=== PATIENT | male | born 1975 | race Caucasian/White ===

== ENCOUNTER 2023-06-29 08:10 | Day surgery (SDC) | payer OTHER, SELFPAY ==
[2023-06-29] VITALS (9 sets, daily range): BP systolic 117–139; BP diastolic 81–97; PULSE 65–99; RESP 12–16; TEMP 36.2–36.4; O2SAT 96–100; BMI 28.0
--- NOTE | 2023-06-29 08:00 | XR_ITS ---
[address] [address] Patient Name: JOAQUINA TOUSSAINT MRN: [id number] date: 1975 Sex: M Assigned Patient Location: [facility] Current Patient Location: [facility] Accession/Order Number: [id number] Exam Date: 06/29/2023 08:30 Report Date: 06/29/2023 09:42 At the request of: RUDY VO Procedure: XR abdomen 1V EXAM: XR abdomen 1V HISTORY: kidney stone COMPARISON: None. TECHNIQUE: AP view of the abdomen. FINDINGS: Nonobstructive bowel gas pattern is noted. There is no suspicious calcification. The osseous structures are intact. XR/XR abdomen 1V IMPRESSION: Unremarkable exam. Electronically authenticated by: JULIO LEMUS Date: 06/29/2023 09:42
--- NOTE | 2023-06-29 08:30 | ECG_ITS ---
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
[2023-06-29 09:01] LABS: Partial Thromboplastin Time 30.3 sec (22.3-36.2); Prothrombin Time 10.6 sec (9.0-11.6)
[2023-06-29] MEDS: LACTATED RINGER'S SOLUTION 1,000 ML 50 ML IV ×2 (09:18→10:47)
[2023-06-29] MEDS: CEFAZOLIN SODIUM/DEXTROSE,ISO 1 GM/50 ML IV.SOLN IV (09:33)
--- NOTE | 2023-06-29 11:22 | P.URON_ITS ---
Urology Surgery Operative Note Operative Note Procedure Date: 06/29/23 Time Out Performed: yes Pre-op Diagnosis: obstructing left ureteral calculus Post-op Diagnosis: same as pre-op Procedures performed: #1. Left ESWL. #2. Cystoscopy. #3. Left rigid ureteral dilation. #4. Left ureteroscopy. #5. Left holmium laser lithotripsy of ureteral calculus. #6. Left ureteral stone basket extraction. #7. Placement of 6 [place] variable length left ureteral stent Anesthesia: General-LMA Primary Surgeon: Deon Matt Complications: non- Estimated blood loss (mL): 10 Findings: large extremely dense left ureteral calculus Specimens: left ureteral calculus fragments Drains: 6 [place] variable length left ureteral stent Indications for Procedures: gentleman has a 6-7 mm left ureteral calculus which has been causing pain and he has been unable to pass the stone. He was desirous for left ESWL and possible definitive ureteroscopic stone manipulation and stent placement. He signed an informed consent after all the risks were explained. Some of these risks include bleeding, perinephric hematoma, infection and anesthesia to name a few. Detailed description of Procedure: The patient was brought to the Operating Room and placed on Siemens electromagnetic lithotripsy treatment table in the supine position. SCDs were placed on their lower extremities and turned on and functioning during the entire case. Timeout was done by all parties in the room. We all agreed upon the patient's identification and the planned procedures for this patient. General Anesthesia was then administered via LMA. Treatment head was then brought to the patient's left side. While using flourscopy the stone was identified now in the distal 3rd of the ureter and lined up into the crosshairs. We then began applying shocks at power level II.0 and increased to maximum of power level III.7. Intermittent fluoroscopy showed that the stone failed to fragment. After 2000 shocks were applied we terminated this portion of the procedure. He was then repositioned into the modified dorsal lithotomy position. All pressure points were satisfactorily padded. Genitalia were sterilely prepped and draped in the usual fashion. I started by passing a 22 [place] Olympus cystoscope per urethra and into the bladder. Anterior urethra was normal. Prostatic urethra had a high median bar but the lateral lobes were not obstructing. Panendoscopy in the bladder showed no evidence of any tumors or stones. I then passed a Glidewire through the scope and cannulated the left ureter. The wire got beyond the stone and up into the kidney. I then used a 8 and 10 [place] rigid dilator to dilate the distal ureter. The cystoscope was then removed. I then passed a semirigid ureteroscope adjacent to the wire through the urethra into the bladder and into the left ureter. I was able to get right to the stone. I then passed a 200 ? holmium laser fiber and made contact with the stone. I then began doing laser lithotripsy at 6 W continuously. I had increased up to 10 W in order to achieve fragmentation due to this extremely dense stone. He had 2 laser quite a bit in order to get full fragmentation. Pieces were extracted and dumped in the base of the bladder using a 0 tip nitinol basket. The ureteroscope was removed. The cystoscope was backloaded over the wire and passed into the bladder. I then slid a 6 [place] variable length ureteral stent over the wire into the kidney. The wire was removed and there were good curls in the kidney and in the bladder. The [employer] evacuator was used to get all the stone fragments out and these were sent for stone analysis. The bladder was drained of its contents and the scope was then removed. He was then transferred to a rbear bed and wheeled to PACU in stable condition. He'll be discharged to home later today with a prescription for Keflex 500 mg daily #10 and Vesicare 10 mg daily #20. We'll get his stent out in a couple weeks.
[2023-06-29] MEDS: SOLIFENACIN SUCCINATE 10 MG TABLET PO (12:10)
[2023-07-07 13:09] LABS: Calcium Oxalate Monohydrate 100 % (.)
== END 2023-06-29 12:42 | disposition home or self-care (01) ==
PROVIDERS: PCP Family Medicine; Visit Provider Urology
PROC: (CPT 50590; principal; 2023-06-29 09:30)
DX: N13.2 Hydronephrosis with renal and ureteral calculous obstruction (principal); R10.9 Unspecified abdominal pain
CPT/HCPCS: 50590; 52356; 36415; 74018; 82365; 85610; 85730; 93005; 99999; C1874; J2704